=== PATIENT | female | born 1995 | race Two or more races ===

== ENCOUNTER 2017-07-25 16:03 | Inpatient (IN) | payer OTHER ==
[~2017-07-25] VITALS: Ht 170.2 cm; Wt 0.5 kg
[2017-07-25] MEDS ORDERED: PRENATAL TABLE1 EAC1 PO (16:07)
[2017-07-25] MEDS ORDERED: SYNTHROID150 MCG PO (16:08)
[2017-07-27] MEDS ORDERED: LEVOTHYROXINE150 MCG PO (11:44)
[2017-07-27] MEDS ORDERED: NAPR500T14 PO (11:44)
== END 2017-07-27 13:29 | disposition home or self-care (01) | DRG 766 ==
LOC: LDR 16:03 → SURH 16:03 → OB/GYN 16:03 → SURG 18:17 → OB/GYN 18:33 → SURH 19:41
PROVIDERS: Specialist
PROC: 4A1HXCZ Monitoring of Products of Conception, Cardiac Rate, External Approach (ICD-10-PCS; 2017-07-25)
PROC: 10D00Z1 Extraction of Products of Conception, Low, Open Approach (ICD-10-PCS; principal; 2017-07-25 17:00)
DX: O32.2XX0 Maternal care for transverse and oblique lie, not applicable or unspecified (principal); O42.112 Preterm premature rupture of membranes, onset of labor more than 24 hours following rupture, second trimester; O99.284 Endocrine, nutritional and metabolic diseases complicating childbirth; Z3A.23 23 weeks gestation of pregnancy; Z37.0 Single live birth

== ENCOUNTER 2019-03-18 07:00 | Day surgery (SDC) | payer OTHER ==
[~2019-03-18 07:00] MED LIST: LEVOTHYROXINE150 MCG PO; NAPR500T14 PO; PRENATAL TABLE1 EAC1 PO; SYNTHROID150 MCG PO; SYNTHROID175 MCG PO
== END 2019-03-18 13:00 | disposition home or self-care (01) ==
LOC: CIR.AMB 07:00
DX: O34.31 Maternal care for cervical incompetence, first trimester (principal)

== ENCOUNTER 2019-08-09 11:21 | Outpatient (CLI) | payer OTHER | END 2019-08-09 12:00 | disposition home or self-care (01) | LOC: NST 11:21 | DX: Z34.83 Encounter for supervision of other normal pregnancy, third trimester (principal) ==

== ENCOUNTER 2019-08-31 10:11 | Inpatient (IN) | payer OTHER ==
[~2019-08-31] VITALS: Ht 170.2 cm; Wt 90.3 kg
[~2019-08-31 10:11] MED LIST changes: +SYNTHROID125 MCG PO
[2019-08-31] MEDS ORDERED: PRENATAL CAPLE1 EAC1 PO (11:08)
== END 2019-09-03 12:21 | disposition home or self-care (01) | DRG 788 ==
LOC: LDR 10:11 → O/R 14:19 → OB/GYN 16:16
PROVIDERS: ADMIT Obstetrics & Gynecology; ATTEND Obstetrics & Gynecology
PROC: 0UCC0ZZ Extirpation of Matter from Cervix, Open Approach (ICD-10-PCS; 2019-08-31)
PROC: 3E033VJ Introduction of Other Hormone into Peripheral Vein, Percutaneous Approach (ICD-10-PCS; 2019-08-31)
PROC: 4A1HXFZ Monitoring of Products of Conception, Cardiac Rhythm, External Approach (ICD-10-PCS; 2019-08-31)
PROC: 10D00Z1 Extraction of Products of Conception, Low, Open Approach (ICD-10-PCS; principal; 2019-08-31 14:00)
DX: O34.211 Maternal care for low transverse scar from previous cesarean delivery (principal); O99.284 Endocrine, nutritional and metabolic diseases complicating childbirth; Z3A.37 37 weeks gestation of pregnancy; Z37.0 Single live birth

== ENCOUNTER → 2019-12-20 08:19 | Outpatient (CLI) | payer OTHER ==
[~2019-12-20 08:19] MED LIST changes: +PRENATAL CAPLE1 EAC1 PO
== END | disposition home or self-care (01) ==
LOC: LAB 08:19
PROVIDERS: ATTEND Obstetrics & Gynecology
DX: R10.2 Pelvic and perineal pain (principal)

== ENCOUNTER 2019-12-20 08:41 | Outpatient (CLI) | payer OTHER | END 2019-12-20 08:49 | disposition home or self-care (01) | LOC: SONOGRAMA 08:41 → MAMO-SONO 08:45 → SONOGRAMA 08:49 | PROVIDERS: ATTEND Obstetrics & Gynecology | DX: R10.2 Pelvic and perineal pain (principal) ==